=== PATIENT | female | born 1990 | race Caucasian/White ===

== ENCOUNTER 2024-08-16 21:21 | Emergency (ER) | payer SELFPAY ==
--- NOTE | ~2024-08-16 | CT_ITS ---
CLINICAL HISTORY: trauma CT head without contrast Comparison: CT/SR - CT FACIAL BONES WO IV CON - 08/17/24 01:30 EDT Findings: No intra-axial mass, midline shift, hydrocephalus, or acute hemorrhage. No significant atrophy-like change or white matter disease. There is no sinus or mastoid fluid. The orbits are unremarkable. There is no acute fracture. IMPRESSION: 1. No acute intracranial findings. This document has been electronically signed by: Drew Whitehead MD on 08/17/2024 03:05:41
--- NOTE | ~2024-08-16 | CT_ITS ---
CLINICAL HISTORY: jaw fx upper front?? trauma CT maxillofacial without contrast Comparison: CT/SR - CT HEAD/BRAIN WO IV CON - 08/17/24 01:30 EDT Findings: There is a vertically oriented fracture of the anterior maxilla involving the vomer. This fracture extends to the root of the central maxillary incisors bilaterally. There is slight anterior displacement of the root of the teeth by approximately 3 mm with posterior angulation of the tooth. This induration with small amount of soft tissue gas immediately inferior to the nares and anterior to the maxilla. Pterygoid plates are intact. Zygomatic arches are intact. Temporomandibular joints are anatomically aligned. No fracture of the orbital floor or orbital tse. No findings of globe rupture. IMPRESSION: Acute fracture of the maxilla/vomer as above with extension to the root of the bilateral central incisors. This document has been electronically signed by: Drew Whitehead MD on 08/17/2024 03:07:56
[2024-08-16 21:26] VITALS: BP 150/97; PULSE 92; RESP 18; TEMP 37.2; O2SAT 97; BMI 29.9
[2024-08-16 23:00] VITALS: BP 142/94; PULSE 83; RESP 18; O2SAT 100
[2024-08-17 00:22] VITALS: RESP 16
[2024-08-17] MEDS: Morphine Sulfate 4 MG/ML CARTRIDGE IVPUSH (00:22)
[2024-08-17] MEDS: ondansetron HCL 4 MG/2 ML VIAL IVPUSH (00:22)
[2024-08-17 00:30] LABS: MANUAL DIFF FLAG NO
[2024-08-17 00:32] LABS: Basophils Absolute Auto 0.1 X10*3/uL (0.0-0.2); Basophils Percent Auto 0.4 % (0-2); Eosinophils Absolute Auto 0.1 X10*3/uL (0.0-0.4); Eosinophils Percent Auto 0.4 % (0-4); Hematocrit 36.1 % (37.0-47.0); Hemoglobin 11.7 g/dl (12.0-16.0); Imm Gran Abs Auto 0.03 X10*3/uL (0.00-0.03); Imm Gran Pct Auto 0.3 % (0.0-0.4); Lymphocytes Absolute Auto 2.4 X10*3/uL (1.2-4.9); Lymphocytes Percent Auto 21.2 % (20-40); Mean Corpuscular HGB Conc 32.4 g/dl (31.0-35.0); Mean Corpuscular Hemoglobin 27.1 pg (27.0-33.0); Mean Corpuscular Volume 83.6 fL (80.0-98.0); Mean Platelet Volume 10.4 fL (9.4-12.3); Monocytes Absolute Auto 0.6 X10*3/uL (0.1-1.2); Monocytes Percent Auto 5.2 % (2-11); Neutrophils Absolute Auto 8.1 x10*3/uL (2.0-8.3); Neutrophils Percent Auto 72.5 % (45-73); Platelet Count 280 X10*3/uL (160-400); Red Blood Count 4.32 X10*6/uL (4.20-5.50); Red Cell Distribution Width 13.7 % (11.0-16.0); White Blood Count 11.2 X10*3/uL (4.8-10.8)
[2024-08-17 00:51] LABS: Anion Gap 12 (12-20); Blood Urea Nitrogen 9 mg/dL (9-16); Calcium 9.2 mg/dL (8.4-10.2); Carbon Dioxide 24 mmol/L (22-29); Chloride 108 mmol/L (96-108); Creatinine Clr Calc Pharmacy 126.6; Estimated Glomerular Filt Rate > 60; Glucose Random 99 mg/dL (60-115); Potassium 3.9 mmol/L (3.3-5.1); Sodium 140 mmol/L (135-145)
[2024-08-17 00:52] LABS: HCG Quantitative < 2 mIU/mL
--- NOTE | 2024-08-17 03:50 | ED.GENADULT ---
HPI - General Adult General Chief complaint: Fall Stated complaint: face injury s/p fall Time Seen by Provider: 08/16/24 22:24 Source: patient Limitations: no limitations History of Present Illness ED Provider: Nguyen Vance PA-C HPI narrative: 34-year-old female presents after fall. Patient states she tripped, falling forward down 4-5 wooden stairs, she did strike her face/mouth, her 2 central incisors are deviated posteriorly, but are intact. Patient complains of mouth pain and headache at this time. She denies neck pain. No loss consciousness, no use of blood thinners. Related Data Previous Rx's ?Medication ?Instructions ?Recorded amoxicillin 875 mg-potassium 1 tab PO Q12H #13 tabs 08/17/24 clavulanate 125 mg tablet ketorolac 10 mg tablet 10 mg PO Q6H PRN pain #20 tabs 08/17/24 oxycodone 5 mg tablet 5 mg PO Q8H PRN pain #10 tabs 08/17/24 Allergies Allergy/AdvReac Type Severity Reaction Status Date / Time No Known Allergies Allergy Verified 08/16/24 21:33 Review of Systems Review of Systems: Yes all other systems are reviewed and are negative Constitutional: Constitutional: Denies fatigue, Denies fever(s) and Reports headache(s) ENT: Reports dental pain, Denies dizziness, Reports facial pain, Reports headache(s) and Reports mouth pain Gastrointestinal: Gastrointestinal: Denies nausea and Denies vomiting Neurologic: Denies dizziness and Reports headache(s) Endocrine: Endocrine: Denies fatigue PMF Past Medical History Attestation statement: The following information was validated with the patient. Social History Social History Advance Directives: No Advance Directives Information Provided: Yes Physical Exam ED Vital Signs: Vital Signs - 24 hr 08/16/24 21:26 08/16/24 23:00 08/17/24 00:22 Temperature 98.9 F Pulse Rate 92 83 Respiratory Rate 18 18 16 Blood Pressure 150/97 H 142/94 H Pulse Oximetry 97 100 Oxygen Delivery Method Room Air Room Air BMI result Body Mass Index 29.9 Const Other: Alert Orientation/consciousness: patient oriented x3 HENMT Other: The upper lip is swollen, along the inner margin adjacent to the oral mucosa the lip is contused, the bottom lip is also contused along the inner margin, the 2 central incisors are displaced posteriorly but are intact I do not see any bleeding or evidence of an open fracture over the maxilla, patient has full range of motion of the jaw she is actually chewing gum Neck Neck: Yes full ROM Resp Effort & Inspection: normal respiratory effort Cardio Other: Normal peripheral perfusion Skin Other: Warm dry no rash Neuro General: patient oriented x3, gait normal, no focal motor deficits and CN's II-XI intact bilaterally Psych Other: Cooperative Medications Administered Discontinued Medications Generic Name Dose Route Start Last Admin Trade Name Michaela PRN Reason Stop Dose Admin Morphine Sulfate 4 mg 08/17/24 00:06 08/17/24 00:22 Morphine Sulfate 4 Mg/Ml Cartridge IVPUSH 08/17/24 00:07 4 mg ONCE ONE Administration Protocol Ondansetron HCl 4 mg 08/17/24 00:06 08/17/24 00:22 Ondansetron Hcl 4 Mg/2 Ml Vial IVPUSH 08/17/24 00:07 4 mg ONCE ONE Administration Medical Decision Making Medical Decision Making MDM Narrative: 34-year-old female presents after fall. Patient states she tripped, falling forward down 4-5 wooden stairs, she did strike her face/mouth, her 2 central incisors are deviated posteriorly, but are intact. Patient complains of mouth pain and headache at this time. She denies neck pain. No loss consciousness, no use of blood thinners. No chronic issues History: Per patient I have considered the following differential diagnoses: Facial bone fracture, intracranial hemorrhage Plan: I am concerned for potential facial bone fracture given the teeth are deviated, we will obtain CT scans of the head and max face. It is reassuring that the patient is not altered has no neurologic deficits is not actively vomiting to suggest an intracranial hemorrhage. We will be giving morphine for pain, we will screen basic labs in the event that she requires immediate surgical intervention. I have independently reviewed the following tests: Labs: Slight leukocytosis, not anemic, no electrolyte abnormality, not present CT brain:Findings: No intra-axial mass, midline shift, hydrocephalus, or acute hemorrhage. No significant atrophy-like change or white matter disease. There is no sinus or mastoid fluid. The orbits are unremarkable. There is no acute fracture. IMPRESSION: 1. No acute intracranial findings. CT facial bones:Findings: There is a vertically oriented fracture of the anterior maxilla involving the vomer. This fracture extends to the root of the central maxillary incisors bilaterally. There is slight anterior displacement of the root of the teeth by approximately 3 mm with posterior angulation of the tooth. This induration with small amount of soft tissue gas immediately inferior to the nares and anterior to the maxilla. Pterygoid plates are intact. Zygomatic arches are intact. Temporomandibular joints are anatomically aligned. No fracture of the orbital floor or orbital tse. No findings of globe rupture. IMPRESSION: Acute fracture of the maxilla/vomer as above with extension to the root of the bilateral central incisors. Lab Data 08/17/24 00:25 08/17/24 00:25 Labs: Lab Results 08/17/24 Range/Units 00:25 WBC 11.2 H (4.8-10.8) X10*3/uL RBC 4.32 (4.20-5.50) X10*6/uL Hgb 11.7 L (12.0-16.0) g/dl Hct 36.1 L (37.0-47.0) % MCV 83.6 (80.0-98.0) fL MCH 27.1 (27.0-33.0) pg MCHC 32.4 (31.0-35.0) g/dl RDW 13.7 (11.0-16.0) % Plt Count 280 (160-400) X10*3/uL MPV 10.4 (9.4-12.3) fL Immature Gran % (Auto) 0.3 (0.0-0.4) % Neut % (Auto) 72.5 (45-73) % Lymph % (Auto) 21.2 (20-40) % Stokes % (Auto) 5.2 (2-11) % Eos % (Auto) 0.4 (0-4) % Baso % (Auto) 0.4 (0-2) % Lymph # (Auto) 2.4 (1.2-4.9) X10*3/uL Stokes # (Auto) 0.6 (0.1-1.2) X10*3/uL Eos # (Auto) 0.1 (0.0-0.4) X10*3/uL Baso # (Auto) 0.1 (0.0-0.2) X10*3/uL Abs Immat Gran (auto) 0.03 (0.00-0.03) X10*3/uL Absolute Neuts (auto) 8.1 (2.0-8.3) x10*3/uL Absolute Nucleated RBC 0.000 (0.0-0.012) X10*3/uL Nucleated RBC % (auto) 0.0 (0.0-0.2) /100WBC Sodium 140 (135-145) mmol/L Potassium 3.9 (3.3-5.1) mmol/L Chloride 108 (96-108) mmol/L Carbon Dioxide 24 (22-29) mmol/L Anion Gap 12 (12-20) BUN 9 (9-16) mg/dL Creatinine 0.66 (0.5-1.4) mg/dL Estim Creat Clear Calc 126.6 Estimated GFR > 60 Random Glucose 99 (60-115) mg/dL Calcium 9.2 (8.4-10.2) mg/dL Magnesium 2.0 (1.6-2.6) mg/dL Beta HCG, Quant < 2 mIU/mL Discharge Plan Discharge Clinical Impression: Fracture of facial bone due to fall Patient Disposition: Home, Self-Care Instructions: Facial Fracture (ED) Additional Instructions: You have a fracture of the maxilla/vomer, this bone is connected to your upper central incisors that were displaced by your fall. We are treating you with empiric antibiotics, take the Augmentin as directed. Use a probiotic to help prevent the development of diarrhea. Use the oxycodone and ketorolac as needed for pain. I am providing you with a contact for one of the local maxillofacial surgeons, we are providing you with a disc of the CT scan that was obtained tonight. I will print a report for you as well. Call tomorrow to schedule a follow up appointment. Dr. Arnaldo Baum [address] Perez [phone] Prescriptions: New ketorolac 10 mg tablet 10 mg PO Q6H PRN (Reason: pain) Qty: 20 0RF Rx Instructions: maximum total duration of 5 days from all oral, intranasal, or parenteral formulations. The patient received Toradol here in the emergency room overnight. oxycodone 5 mg tablet 5 mg PO Q8H PRN (Reason: pain) Qty: 10 0RF Rx Instructions: Partial Fill upon patient request. amoxicillin-pot clavulanate 875-125 mg tablet 1 tab PO Q12H Qty: 13 0RF Stand Alone Forms: Work/School Release Print Language: [place]
[2024-08-17] MEDS: Amoxicillin/Potassium Clav 875 MG TABLET PO (04:10)
[2024-08-17] MEDS: oxyCODONE HCl Immed Release 5 MG TABLET PO (04:16)
[2024-08-17] MEDS: Ketorolac Tromethamine 15 MG/ML VIAL IVPUSH (04:16)
[2024-08-17 04:26] VITALS: BP 130/76; PULSE 88; RESP 16; TEMP 36.6; O2SAT 99
--- NOTE | 2024-08-17 04:28 | PC.NURSE ---
ambulates steadily with friend out of department. breathing not impaired, medicated for pain on discharge. states questions are answered, needs met, states she understands d/c instructions and teaching
== END 2024-08-17 04:29 | disposition home or self-care (01) ==
PROVIDERS: Physician Assistant Medical; Emergency Provider Emergency Medicine
DX: S02.92XA Unspecified fracture of facial bones, initial encounter for closed fracture (principal); W10.8XXA Fall (on) (from) other stairs and steps, initial encounter; Y93.9 Activity, unspecified; Y92.9 Unspecified place or not applicable; Y99.9 Unspecified external cause status
CPT/HCPCS: 36415; 70450; 70486; 80048; 83735; 84702; 85025; 96374; 96375; 99283; 99284; J1885; J2270; J2405

== ENCOUNTER → 2024-08-17 00:06 | Outpatient (BNV) | payer SELFPAY | PROVIDERS: Emergency Provider Emergency Medicine; Visit Provider Radiology Diagnostic Radiology | DX: S02.401A Maxillary fracture, unspecified side, initial encounter for closed fracture (principal); G44.309 Post-traumatic headache, unspecified, not intractable | CPT/HCPCS: 70450; 70486 ==

== ENCOUNTER 2024-09-28 15:42 | Emergency (ER) | payer SELFPAY ==
[2024-09-28 16:06] VITALS: BP 146/94; PULSE 66; RESP 18; TEMP 36.6; O2SAT 98; BMI 27.6
--- NOTE | 2024-09-28 16:06 | ED.EYEPROB ---
HPI - Eye Problem General Chief complaint: Eye Problems Stated complaint: eye swollen Time Seen by Provider: 09/28/24 18:43 Related Data Previous Rx's ?Medication ?Instructions ?Recorded amoxicillin 875 mg-potassium 1 tab PO Q12H #13 tabs 08/17/24 clavulanate 125 mg tablet ketorolac 10 mg tablet 10 mg PO Q6H PRN pain #20 tabs 08/17/24 oxycodone 5 mg tablet 5 mg PO Q8H PRN pain #10 tabs 08/17/24 Allergies Allergy/AdvReac Type Severity Reaction Status Date / Time No Known Allergies Allergy Verified 09/28/24 16:07 [facility] Social History Social History Advance Directives: No Advance Directives Information Provided: No Do you have a plan to hurt others: No Plan Physical Exam Vital Signs: Vital Signs: Last Vital Signs Temp 98 F 09/28/24 16:06 Pulse 66 09/28/24 16:06 Resp 18 09/28/24 16:06 BP 146/94 H 09/28/24 16:06 Pulse Ox 98 09/28/24 16:06 O2 Del Method Room Air 09/28/24 16:06 BMI result Body Mass Index 27.6 Course Course Course Narrative: This is an RME performed by Rita Crystal CNP: Additional HPI, ROS, PE not included below will be deferred to primary provider. Patient is a 34 year old female who presents emergency department for evaluation. Reports 2 days ago she awoke with swelling surrounding her right eye, blurred vision, pressure sensation behind the eye, associated right-sided headache. Progressively worsening. Also had sore throat with onset 2 days ago. denies fevers or chillc, denies neck pain Exam: PERRLA, EOMI, periorbital swelling and mild erythema. No focal neurological deficits. Plan: Viral serologies, group a strep, visual acuity, placed in waiting room pending bed availability for further eye evaluation Reevaluation(s) Reevaluation #1: LWCT Medical Decision Making Lab Data Labs: Lab Results 09/28/24 Range/Units 16:41 Influenza Type A (PCR) NEGATIVE (Negative) Influenza Type B (PCR) NEGATIVE (Negative) RSV RNA Qual (PCR) NEGATIVE (Negative) SARS-CoV-2 RNA (RT-PCR) NEGATIVE (Negative) S. pyogenes GrpA TORSTEN Negative (Negative) Discharge Plan Discharge Clinical Impression: Diagnosis unknown Patient Disposition: Left W/O Completing Treatment Prescriptions: No Action ketorolac 10 mg tablet 10 mg PO Q6H PRN (Reason: pain) Qty: 20 0RF Rx Instructions: maximum total duration of 5 days from all oral, intranasal, or parenteral formulations. The patient received Toradol here in the emergency room overnight. oxycodone 5 mg tablet 5 mg PO Q8H PRN (Reason: pain) Qty: 10 0RF Rx Instructions: Partial Fill upon patient request. amoxicillin-pot clavulanate 875-125 mg tablet 1 tab PO Q12H Qty: 13 0RF Discharge Date/Time: 09/28/24 20:42
--- NOTE | 2024-09-28 16:47 | MHC.EDTECH ---
Patient uses glasses but does not have them with her.
[2024-09-28 17:06] LABS: IDNOW Serial# 55D5AD1C; Strep A Nucleic Acid Negative (Negative)
[2024-09-28 17:35] LABS: Resp Syncy Virus RNA Qual PCR NEGATIVE (Negative); SARS COV2 PCR INHOUSE NEGATIVE (Negative)
--- NOTE | 2024-09-28 18:59 | PC.NURSE ---
pt no longer in exam room, unable to locate pt- MD Sepulveda notified
== END 2024-09-28 20:42 | disposition left against medical advice (07) ==
PROVIDERS: Nurse Practitioner Family; Emergency Provider Emergency Medicine
DX: R51.9 Headache, unspecified (principal); H53.8 Other visual disturbances; J02.9 Acute pharyngitis, unspecified; Z03.818 Encounter for observation for suspected exposure to other biological agents ruled out
CPT/HCPCS: 87637; 87651; 99282; 99283